=== PATIENT | female | born 1960 | race Caucasian/White ===

== ENCOUNTER 2019-03-16 00:14 | Inpatient (IN) | payer MEDICARE, MEDICAID ==
[~2019-03-16] VITALS: Ht 175.3 cm; Wt 112.5 kg
[2019-03-16 01:00] VITALS: BP 136/78
[2019-03-16] MEDS ORDERED: ACETAMINOPHEN 650MG/20.3ML UDC PO PRN (03:30)
[2019-03-16] MEDS ORDERED: DEXTROSE 50% WATER 50ML SYRINGE IV PRN (03:30)
[2019-03-16] MEDS ORDERED: MAGNESIUM HYDROXIDE 400MG/5ML 30ML UDC PO PRN (04:30)
[2019-03-16] MEDS ORDERED: BISACODYL 10MG SUPP PR PRN (06:00)
[2019-03-16] MEDS: GABAPENTIN 100MG CAPSULE PO SCH ×3 (06:11→21:07)
[2019-03-16] MEDS: LEVOTHYROXINE SODIUM 100MCG TABLET PO SCH (06:11)
[2019-03-16] MEDS: BLOOD SUGAR DIAGNOSTIC STRIP TEST SCH ×4 (06:12→21:00)
[2019-03-16] MEDS: INSULIN LISPRO 100 UNITS/ML SUBCUT SCH ×4 (06:44→21:30)
[2019-03-16 08:00] VITALS: BP 113/56
[2019-03-16] MEDS ORDERED: IPRATROPIUM/ALBUTEROL 0.5-3(2.5)MG/3ML NEB HHN PRN (08:00)
[2019-03-16] MEDS ORDERED: ONDANSETRON HCL 4MG/2ML INJ IV PRN (08:00)
[2019-03-16] MEDS ORDERED: CLONIDINE 0.1MG TABLET PO PRN (08:00)
[2019-03-16] MEDS ORDERED: PNEUMOCOCCAL 23-VAL P-SAC VAC 0.5 ML IM ONE (08:00)
[2019-03-16] MEDS ORDERED: HYDROCODONE/ACETAMINOPHEN 5/325MG TABLET PO PRN (08:00)
[2019-03-16] MEDS ORDERED: FAMOTIDINE 20MG TABLET PO SCH ×2 (09:00→21:00)
[2019-03-16] MEDS: CELECOXIB 200MG CAPSULE PO SCH ×2 (09:05→16:07)
[2019-03-16 11:24] LABS: BASOPHILS % 0.3 % (0.0-2.0); EOSINOPHILS % 3.1 % (0.0-5.0); HEMATOCRIT. 34.8 % (36.0-48.0); HEMOGLOBIN. 11.2 g/dL (12.0-16.0); LYMPHOCYTES % 32.3 % (20.0-50.0); MEAN CORPUSCULAR HEMOGLOBIN 26.8 pg (28.0-32.0); MEAN CORPUSCULAR VOLUME 83.2 fL (81.0-99.0); MEAN PLATELET VOLUME 8.5 fl (7.4-10.4); MONOCYTES % 5.7 % (2.0-8.0); NEUTROPHILS % 58.6 % (40.0-76.0); PLATELET 302 x1000/uL (130-400); RED BLOOD CELL COUNT 4.19 mill/uL (4.2-5.4); RED CELL DISTRIBUTION WIDTH 15.6 % (11.6-14.6)
[2019-03-16 11:35] LABS: CHLORIDE 108 mEq/L (98-107)
[2019-03-16 11:46] LABS: T4 FREE 1.12 ng/dL (0.76-1.46)
[2019-03-16 12:00] VITALS: BP 118/62
[2019-03-16 19:35] LABS: CLARITY URINE CLOUDY (CLEAR); COLOR URINE YELLOW (YELLOW); KETONES URINE NEGATIVE (NEGATIVE); LEUKOCYTE ESTERASE URINE 3+ (NEGATIVE); NITRITE URINE POSITIVE (NEGATIVE); OCCULT BLOOD URINE NEGATIVE (NEGATIVE); PROTEIN URINE NEGATIVE (NEGATIVE); SPECIFIC GRAVITY URINE 1.009 (1.005-1.030); UROBILINOGEN URINE 0.2 E.U./dL (0.2-1.0)
[2019-03-16 20:00] VITALS: BP 93/54
[2019-03-16] MEDS: FAMOTIDINE 20MG TABLET PO SCH ×2 (21:07→21:18)
[2019-03-16] MEDS: ATORVASTATIN CALCIUM 20MG TABLET PO SCH ×2 (21:07→21:19)
[2019-03-16] MEDS: ENOXAPARIN 30MG/0.3ML SYR SUBCUT SCH (21:08)
[2019-03-17] VITALS: BP 109/59
[2019-03-17 04:00] VITALS: BP 101/58
[2019-03-17] MEDS: GABAPENTIN 100MG CAPSULE PO SCH ×3 (05:42→21:11)
[2019-03-17] MEDS: BLOOD SUGAR DIAGNOSTIC STRIP TEST SCH ×3 (07:30→21:12)
[2019-03-17] MEDS: INSULIN LISPRO 100 UNITS/ML SUBCUT SCH ×4 (07:30→21:00)
[2019-03-17 08:00] VITALS: BP 116/65
[2019-03-17] MEDS: LEVOTHYROXINE SODIUM 100MCG TABLET PO SCH (08:14)
[2019-03-17] MEDS: ENOXAPARIN 30MG/0.3ML SYR SUBCUT SCH ×2 (08:14→21:12)
[2019-03-17] MEDS: CELECOXIB 200MG CAPSULE PO SCH ×2 (08:14→17:45)
[2019-03-17 12:00] VITALS: BP 117/63
[2019-03-17 13:15] LABS: CHLORIDE 109 mEq/L (98-107)
[2019-03-17 16:00] VITALS: BP 115/69
[2019-03-17 17:15] VITALS: BP 121/68
[2019-03-17] MEDS: FAMOTIDINE 20MG TABLET PO SCH (21:11)
[2019-03-18] VITALS: BP 96/57
[2019-03-18 04:00] VITALS: BP 100/56
[2019-03-18] MEDS: GABAPENTIN 100MG CAPSULE PO SCH ×3 (05:50→21:21)
[2019-03-18 06:54] LABS: BASOPHILS % 0.7 % (0.0-2.0); EOSINOPHILS % 3.1 % (0.0-5.0); HEMATOCRIT. 33.8 % (36.0-48.0); HEMOGLOBIN. 11.1 g/dL (12.0-16.0); LYMPHOCYTES % 45.5 % (20.0-50.0); MEAN CORPUSCULAR HEMOGLOBIN 27.4 pg (28.0-32.0); MEAN CORPUSCULAR VOLUME 83.4 fL (81.0-99.0); MEAN PLATELET VOLUME 8.3 fl (7.4-10.4); MONOCYTES % 5.9 % (2.0-8.0); NEUTROPHILS % 44.8 % (40.0-76.0); PLATELET 313 x1000/uL (130-400); RED BLOOD CELL COUNT 4.06 mill/uL (4.2-5.4); RED CELL DISTRIBUTION WIDTH 15.3 % (11.6-14.6)
[2019-03-18] MEDS: BLOOD SUGAR DIAGNOSTIC STRIP TEST SCH ×4 (07:01→21:20)
[2019-03-18] MEDS: INSULIN LISPRO 100 UNITS/ML SUBCUT SCH ×4 (07:01→21:00)
[2019-03-18] MEDS: LEVOTHYROXINE SODIUM 100MCG TABLET PO SCH (07:05)
[2019-03-18 07:59] LABS: CHLORIDE 111 mEq/L (98-107)
[2019-03-18 08:00] VITALS: BP 110/63
[2019-03-18] MEDS: ENOXAPARIN 30MG/0.3ML SYR SUBCUT SCH ×2 (09:48→21:21)
[2019-03-18] MEDS: CELECOXIB 200MG CAPSULE PO SCH ×2 (09:48→17:22)
[2019-03-18] MEDS: FAMOTIDINE 20MG TABLET PO SCH ×2 (09:48→21:21)
[2019-03-18 12:00] VITALS: BP 114/63
[2019-03-18] MEDS ORDERED: SENNOSIDES/DOCUSATE SOD 8.6/50MG TABLET PO PRN (14:15)
[2019-03-18] MEDS ORDERED: MAGNESIUM HYDROXIDE 400MG/5ML 30ML UDC PO PRN (14:15)
[2019-03-18] MEDS ORDERED: CEFTRIAXONE 1 G PREMIX 50 ML IV SCH (14:30)
[2019-03-18 16:00] VITALS: BP_SYST 84; BP_SYST 94; BP_DIAS 53; BP_DIAS 63
[2019-03-18] MEDS ORDERED: CEFTRIAXONE 1 G PREMIX 50 ML IV NR (18:00)
[2019-03-18 20:00] VITALS: BP_SYST 101; BP_SYST 119; BP_DIAS 59; BP_DIAS 67
[2019-03-18] MEDS: ATORVASTATIN CALCIUM 20MG TABLET PO SCH (21:21)
[2019-03-19] VITALS: BP 109/51
[2019-03-19 04:00] VITALS: BP 100/51
[2019-03-19] MEDS: INSULIN LISPRO 100 UNITS/ML SUBCUT SCH ×2 (06:09→12:06)
[2019-03-19] MEDS: BLOOD SUGAR DIAGNOSTIC STRIP TEST SCH ×2 (06:09→12:06)
[2019-03-19] MEDS: LEVOTHYROXINE SODIUM 100MCG TABLET PO SCH (06:15)
[2019-03-19] MEDS: GABAPENTIN 100MG CAPSULE PO SCH ×2 (06:15→13:44)
[2019-03-19 08:00] VITALS: BP_SYST 104; BP_SYST 105; BP_SYST 109; BP_DIAS 54; BP_DIAS 67; BP_DIAS 75
[2019-03-19] MEDS: ENOXAPARIN 30MG/0.3ML SYR SUBCUT SCH (08:50)
[2019-03-19] MEDS: CELECOXIB 200MG CAPSULE PO SCH (08:50)
[2019-03-19] MEDS: FAMOTIDINE 20MG TABLET PO SCH (08:50)
[2019-03-19] MEDS ORDERED: CEPH-569 MT (11:59)
[2019-03-19 12:00] VITALS: BP 125/77
[2019-03-19] MEDS ORDERED: CEFTRIAXONE 1 G PREMIX 50 ML IV SCH (13:00)
[2019-03-19 14:52] VITALS: BP 125/77
== END 2019-03-19 15:00 | DRG 690 ==
LOC: 6EST 00:14 → 8WST 03-17 17:03
PROVIDERS: ADMIT Internal Medicine Critical Care Medicine; ATTEND Internal Medicine Critical Care Medicine
DX: N39.0 Urinary tract infection, site not specified (principal); R26.89 Other abnormalities of gait and mobility; E11.9 Type 2 diabetes mellitus without complications; D64.9 Anemia, unspecified; E78.5 Hyperlipidemia, unspecified; F31.9 Bipolar disorder, unspecified; F20.9 Schizophrenia, unspecified; E66.01 Morbid (severe) obesity due to excess calories; G90.8 Other disorders of autonomic nervous system; I10 Essential (primary) hypertension; E55.9 Vitamin D deficiency, unspecified; E03.9 Hypothyroidism, unspecified; K21.9 Gastro-esophageal reflux disease without esophagitis; F41.9 Anxiety disorder, unspecified; B96.20 Unspecified Escherichia coli [E. coli] as the cause of diseases classified elsewhere; Z87.440 Personal history of urinary (tract) infections; Z82.0 Family history of epilepsy and other diseases of the nervous system; Z68.36 Body mass index [BMI] 36.0-36.9, adult; Z88.2 Allergy status to sulfonamides; Z87.01 Personal history of pneumonia (recurrent)
CPT/HCPCS: 36415; 71045; 80048; 80053; 81003; 82962; 83036; 84439; 84443; 84481; 85025; 87077; 87186; 90732; 97162; G0378; J0696; J1650; J1815; J7040